=== PATIENT | female | born 1970 | race Two or more races ===

== ENCOUNTER 2019-07-16 10:58 | Observation (INO) | payer SELFPAY ==
--- NOTE | 2019-07-16 11:32 | ER Document Report ---
ED Medical Screen (RME) - General Chief Complaint: Abdominal Pain Stated Complaint: ABDOMINAL PAIN, NAUSEA Time Seen by Provider: 07/16/19 11:29 Primary Care Provider: JOSH FREGOSO NP [Primary Care Provider] - Follow up as needed Mode of Arrival: Wheelchair Information source: Patient Notes: 49-year-old female presented to ED for epigastric abdominal pain that spreads down to the whole abdomen. She states she has not had her gallbladder removed. She does have nausea and vomiting. The pain started after eating pork alireza last night. Is alert oriented respirations regular nonlabored speaking in full sentences to her son. She does speak in [place]. Her son is translating at this time. Blood urine ultrasound and Zofran will be ordered in the pit area. I have greeted and performed a rapid initial assessment of this patient. A comprehensive ED assessment and evaluation of the patient, analysis of test results and completion of medical decision making process will be conducted by an additional ED providers. TRAVEL OUTSIDE OF THE [place] IN LAST 30 DAYS: No Physical Exam - Vital signs Vitals: Temp Pulse Resp BP Pulse Ox 98.2 F 83 18 156/82 H 98 07/16/19 11:06 07/16/19 11:06 07/16/19 11:06 07/16/19 11:06 07/16/19 11:06 Course - Vital Signs Vital signs: Temp Pulse Resp BP Pulse Ox 98.2 F 83 18 156/82 H 98 07/16/19 11:06 07/16/19 11:06 07/16/19 11:06 07/16/19 11:06 07/16/19 11:06 Doctor's Discharge - Discharge Referrals: JOSH FREGOSO NP [Primary Care Provider] - Follow up as needed
[2019-07-16] MEDS ORDERED: ONDANSETRON 4 MG TAB.RAPDIS PO ONE (11:38)
[2019-07-16 12:02] LABS: ABSOLUTE LYMPHOCYTES (AUTO) 1.8 10^3/uL (0.5-4.7); ABSOLUTE MONOCYTES (AUTO) 0.6 10^3/uL (0.1-1.4); ABSOLUTE NEUT (AUTO) 11.3 10^3/uL (1.7-8.2); BASOPHILS % (AUTO) 0.4 % (0-2); EOSINOPHILS % (AUTO) 0.3 % (0-6); HEMATOCRIT 46.8 % (36.0-47.0); HEMOGLOBIN 15.7 g/dL (12.0-15.5); LYMPHOCYTES % (AUTO) 13.3 % (13-45); MEAN CORPUSCULAR HEMOGLOBIN 30.1 pg (27.0-33.4); MEAN CORPUSCULAR HGB CONC 33.6 g/dL (32.0-36.0); MEAN CORPUSCULAR VOLUME 90 fl (80-97); MONOCYTES % (AUTO) 4.4 % (3-13); PLATELET COUNT 436 10^3/uL (150-450); RED BLOOD COUNT 5.22 10^6/uL (3.72-5.28); RED CELL DISTRIBUTION WIDTH 13.3 % (11.5-14.0); SEGMENTED NEUTROPHILS % (AUTO) 81.6 % (42-78); TOTAL CELLS COUNTED % (AUTO) 100 %; WHITE BLOOD COUNT 13.8 10^3/uL (4.0-10.5)
[2019-07-16 12:07] LABS: APPEARANCE,URINE CLEAR; BILIRUBIN,URINE NEGATIVE (NEGATIVE); COLOR,URINE YELLOW; GLUCOSE, URINE NEGATIVE (NEGATIVE); KETONES,URINE NEGATIVE (NEGATIVE); PROTEIN,URINE NEGATIVE (NEGATIVE); URINE SPECIFIC GRAVITY 1.015; UROBILINOGEN,URINE NEGATIVE mg/dL (<2.0)
[2019-07-16 12:22] LABS: ALBUMIN 4.6 g/dL (3.5-5.0); ALKALINE PHOSPHATASE 120 U/L (38-126); ANION GAP 11 (5-19); ASPARTATE AMINO TRANSFERASE 43 U/L (14-36); BILIRUBIN,TOTAL 0.7 mg/dL (0.2-1.3); BLOOD UREA NITROGEN 12 mg/dL (7-20); CALCIUM 10.2 mg/dL (8.4-10.2); CARBON DIOXIDE 29 mmol/L (22-30); CHLORIDE 101 mmol/L (98-107); GLUCOSE 144 mg/dL (75-110); POTASSIUM 4.3 mmol/L (3.6-5.0); TOTAL PROTEIN 8.6 g/dL (6.3-8.2)
--- NOTE | 2019-07-16 13:43 | ER Document Report ---
ED General - General Chief Complaint: Epigastric Pain Stated Complaint: ABDOMINAL PAIN, NAUSEA Time Seen by Provider: 07/16/19 11:29 Mode of Arrival: Wheelchair Notes: 49-year-old primarily Indonesian-speaking female presents to the emergency department with c/o epigastric pain that started last night after she ate pork rinds. Patient's son is at the bedside interpreting for mother. Timti has been requested. Patient reports she is vomited twice. Denies pain at this time. Denies diarrhea fever. Reports she has been told she is prediabetic. Has not had anything to eat or drink all day. TRAVEL OUTSIDE OF THE [place] IN LAST 30 DAYS: Yes - HPI Onset: Yesterday Onset/Duration: Sudden Quality of pain: Achy Associated symptoms: Nausea, Vomiting Exacerbated by: Denies Relieved by: Denies Similar symptoms previously: No Recently seen / treated by doctor: No - Related Data Allergies/Adverse Reactions: No Known Allergies Allergy (Unverified 07/16/19 11:40) Past Medical History - General Information source: Patient Last Menstrual Period: menopause - Social History Smoking Status: Never Smoker Chew tobacco use (# tins/day): No Frequency of alcohol use: None Drug Abuse: None Lives with: Family Family History: None Patient has suicidal ideation: No Patient has homicidal ideation: No - Medical History Medical History: Negative Surgical Hx: Negative Review of Systems - Review of Systems Notes: Review HPI for review of systems., All other systems negative Physical Exam - Vital signs Vitals: Temp Pulse Resp BP Pulse Ox 98.2 F 83 18 156/82 H 98 07/16/19 11:06 07/16/19 11:06 07/16/19 11:06 07/16/19 11:06 07/16/19 11:06 - Notes Notes: PHYSICAL EXAMINATION: GENERAL: Well-appearing and in no acute distress HEAD: Atraumatic, normocephalic. EYES: extraocular movements intact, sclera anicteric, conjunctiva are normal. ENT: nares patent, Moist mucous membranes. NECK: Normal range of motion, supple without lymphadenopathy LUNGS: CTAB and equal. No wheezes rales or rhonchi. HEART: Regular rate and rhythm without murmurs ABDOMEN: Soft, no tenderness. No guarding, no rebound denies pain EXTREMITIES: Normal range of motion NEUROLOGICAL: Cranial nerves grossly intact. Normal sensory/motor exams. PSYCH: Normal mood, normal affect. SKIN: Warm, Dry, normal turgor, no rashes or lesions noted Course - Re-evaluation Re-evalutation: 07/16/19 14:40 49-year-old female presents with epigastric pain. WBCs 13.8 no shift. All other labs unremarkable. Ultrasound shows cholelithiasis cholecystitis. Discussed surgical consult with patient to have gallbladder removed. She jeremy balized understanding thru her son and agrees with plan of care. Laboratory 07/16/19 07/16/19 07/16/19 11:51 11:51 11:51 WBC 13.8 H RBC 5.22 Hgb 15.7 H Hct 46.8 MCV 90 MCH 30.1 MCHC 33.6 RDW 13.3 Plt Count 436 Lymph % (Auto) 13.3 Holmes % (Auto) 4.4 Eos % (Auto) 0.3 Baso % (Auto) 0.4 Absolute Neuts (auto) 11.3 H Absolute Lymphs (auto) 1.8 Absolute Monos (auto) 0.6 Absolute Eos (auto) 0.0 Absolute Basos (auto) 0.0 Seg Neutrophils % 81.6 H Sodium 141.3 Potassium 4.3 Chloride 101 Carbon Dioxide 29 Anion Gap 11 BUN 12 Creatinine 0.59 Est GFR ( Amer) > 60 Est GFR (MDRD) Non-Af > 60 Glucose 144 H Calcium 10.2 Total Bilirubin 0.7 Direct Bilirubin 0.0 Neonat Total Bilirubin Not Reportable Neonat Direct Bilirubin Not Reportable Neonat Indirect Bili Not Reportable AST 43 H ALT 38 H Alkaline Phosphatase 120 Total Protein 8.6 H Albumin 4.6 Lipase 71.3 Urine Color YELLOW Urine Appearance CLEAR Urine pH 8.0 Ur Specific [place] 1.015 Urine Protein NEGATIVE Urine Glucose (UA) NEGATIVE Urine Ketones NEGATIVE Urine Blood NEGATIVE Urine Nitrite (Reflex) NEGATIVE Urine Bilirubin NEGATIVE Urine Urobilinogen NEGATIVE Leukocyte Esterase Rfl TRACE H Urine RBC (Auto) 1 Urine WBC (Reflex) 4 Squamous Epi Cells Auto 2 Urine Mucus (Auto) OCC Urine Ascorbic Acid NEGATIVE Abdomen Ultrasound 07/16/19 11:33 IMPRESSION: 1. Hepatic steatosis. 2. Cholelithiasis, gallbladder wall thickening and a trace amount of pericholecystic fluid. In the setting of a negative sonographic Nunez sign these signing sarcoma local for acute cholecystitis. If indicated correlation with a HIDA could obtained for confirmation. 3. The pancreas and mid abdominal aorta are obscured by overlying bowel. 07/16/19 15:23 - Vital Signs Vital signs: Temp Pulse Resp BP Pulse Ox 98.2 F 83 18 156/82 H 98 07/16/19 11:06 07/16/19 11:06 07/16/19 11:06 07/16/19 11:06 07/16/19 11:06 - Laboratory Result Diagrams: 07/16/19 11:51 07/16/19 11:51 Laboratory results interpreted by me: 07/16/19 07/16/19 07/16/19 11:51 11:51 11:51 WBC 13.8 H Hgb 15.7 H Absolute Neuts (auto) 11.3 H Seg Neutrophils % 81.6 H Glucose 144 H AST 43 H ALT 38 H Total Protein 8.6 H Leukocyte Esterase Rfl TRACE H - Diagnostic Test Radiology reviewed: Image reviewed, Reports reviewed - Consults dr patel Time consulted: 15:02 Reason for consultation: 07/16/19 15:02 cholecystitis Consulted provider: will come to ER Discharge - Discharge Clinical Impression: Cholecystitis Abdominal pain Qualifiers: Abdominal location: generalized Qualified Code(s): R10.84 - Generalized abdominal pain Condition: Stable Disposition: ADMITTED INPATIENT Admitting Provider: Surgicalist Unit Admitted: Surgical Floor
--- NOTE | 2019-07-16 14:17 | RADIOLOGY REPORT (SQ) ---
EXAM DESCRIPTION: U/S ABDOMEN LIMITED W/O DOP COMPLETED DATE/TIME: 07/16/2019 1:59 pm REASON FOR STUDY: Epigastric pain with nausea and vomiting. COMPARISON: None. TECHNIQUE: Dynamic and static grayscale images acquired of the abdomen and recorded on PACS. Additio nal selected color Doppler and spectral images recorded. LIMITATIONS: None. FINDINGS: PANCREAS: Unable to visualize the pancreas. LIVER: Increased heterogeneous echotexture of hepatic parenchyma with attenuation of the far field. LIVER VASCULATURE: Hepatopetal directional flow within the portal veins. GALLBLADDER: The gallbladder wall is thickened and it measures 7 mm. There or shadowing echogenic ca lculi within the gallbladder lumen and a trace amount of pericholecystic fluid. ULTRASOUND-DETECTED NUNEZ'S SIGN: Negative. INTRAHEPATIC DUCTS AND COMMON DUCT: The common bile duct measures 5 mm in diameter. Evaluation of th e intrahepatic bile ducts is limited. AORTA: No aneurysm of the proximal or distal abdominal aorta ; unable to visualize the mid abdominal aorta. RIGHT KIDNEY: The right kidney measures 10.2 cm in length. There is no hydronephrosis. PERITONEAL AND RIGHT PLEURAL SPACE: No ascites or effusions. OTHER: No other findings. IMPRESSION: 1. Hepatic steatosis. 2. Cholelithiasis, gallbladder wall thickening and a trace amount of pericholecystic fluid. In the setting of a negative sonographic Nunez sign these signing sarcoma local for acute cholecystitis. I f indicated correlation with a HIDA could obtained for confirmation. 3. The pancreas and mid abdominal aorta are obscured by overlying bowel. TECHNICAL DOCUMENTATION: JOB ID: [id number] 2010 [employer]- All Rights Reserved Reading location - IP/workstation name: [id number]
[2019-07-16] MEDS ORDERED: AMPICILLIN SOD/SULBACTAM 3 GM VIAL IV ONE (14:57)
[2019-07-16] MEDS ORDERED: NORMAL SALINE 1000 ML 1,000 ML IV ONE (14:57)
[2019-07-16] MEDS ORDERED: RINGERS SOLUTION,LACTATED 1,000 ML IV PRN (16:51)
[2019-07-16] MEDS ORDERED: ONDANSETRON HCL INJ/PF 4 MG/2 ML SDV IV PRN (16:51)
[2019-07-16] MEDS ORDERED: KETOROLAC TROMETHAMINE 10 MG TABLET PO PRN (16:51)
--- NOTE | 2019-07-16 16:57 | PDOC H&P ---
History of Present Illness Patient complains of: Abdominal pain History of Present Illness: MEMO BUSH is a 49 year old female 49-year-old female, [id number], presents emergency department with a several day history of abdominal pain, postprandial, worse in the right upper quadrant. Last night of pain was worse after eating pork grinds. She is seen in the emergency department this morning which found to have right upper quadrant tenderness. Gallbladder ultrasound showed gallstones, pericholecystic fluid and gallbladder wall thickening to 7 mm. Surgery was consulted and she was advised admission. There is no known family history of gallstones. Patient is accompanied by her family including her son who speaks on her behalf. Past Medical History Medical History: None Past Surgical History Past Surgical History: Reports: None Social History Information Source: Patient Lives with: Family Smoking Status: Never Smoker Electronic Cigarette use?: No Frequency of Alcohol Use: None Hx Recreational Drug Use: No Family History Parental Family History Reviewed: No Children Family History Reviewed: No Sibling(s) Family History Reviewed.: No Medication/Allergy Allergies/Adverse Reactions: No Known Allergies Allergy (Unverified 07/16/19 11:40) Review of Systems ROS unobtainable: Other - Obtained through the filter helper, her son. Constitutional: ABSENT: chills, fever(s), headache(s), weight gain, weight loss Ears: ABSENT: hearing changes Cardiovascular: ABSENT: chest pain, dyspnea on exertion, edema, orthropnea, palpitations Gastrointestinal: PRESENT: as per HPI. ABSENT: abdominal pain, constipation, diarrhea, hematemesis, hematochezia, nausea, vomiting Genitourinary: ABSENT: dysuria, hematuria Musculoskeletal: ABSENT: joint swelling Neurological: ABSENT: abnormal gait, abnormal speech, confusion, dizziness, focal weakness, syncope Physical Exam Vital Signs: Temp Pulse Resp BP Pulse Ox 98.2 F 83 18 156/82 H 98 07/16/19 11:06 07/16/19 11:06 07/16/19 11:06 07/16/19 11:06 07/16/19 11:06 Intake & Output 07/15/19 07/16/19 07/17/19 06:59 06:59 06:59 Weight 91.4 kg General appearance: PRESENT: no acute distress, other - History and physical obtained via son, filter helper Head exam: PRESENT: atraumatic Eye exam: PRESENT: EOMI Mouth exam: PRESENT: dry mucosa Neck exam: PRESENT: full ROM Respiratory exam: PRESENT: clear to auscultation randee Cardiovascular exam: PRESENT: RRR Pulses: PRESENT: normal carotid pulses, normal radial pulses, normal femoral pulses GI/Abdominal exam: PRESENT: diminished bowel sounds, other - Tender right upper quadrant with moderate guarding Rectal exam: PRESENT: deferred Extremities exam: PRESENT: full ROM Musculoskeletal exam: PRESENT: full ROM Neurological exam: PRESENT: oriented to person, oriented to place, oriented to time, oriented to situation, other - Again information obtained through filter helper Skin exam: PRESENT: intact Results Laboratory Results: 07/16/19 11:51 07/16/19 11:51 07/16/19 07/16/19 07/16/19 11:51 11:51 11:51 WBC 13.8 H RBC 5.22 Hgb 15.7 H Hct 46.8 MCV 90 MCH 30.1 MCHC 33.6 RDW 13.3 Plt Count 436 Seg Neutrophils % 81.6 H Sodium 141.3 Potassium 4.3 Chloride 101 Carbon Dioxide 29 Anion Gap 11 BUN 12 Creatinine 0.59 Est GFR ( Amer) > 60 Glucose 144 H Calcium 10.2 Total Bilirubin 0.7 AST 43 H Alkaline Phosphatase 120 Total Protein 8.6 H Albumin 4.6 Lipase 71.3 Urine Color YELLOW Urine Appearance CLEAR Urine pH 8.0 Ur Specific [place] 1.015 Urine Protein NEGATIVE Urine Glucose (UA) NEGATIVE Urine Ketones NEGATIVE Urine Blood NEGATIVE Urine RBC (Auto) 1 Impressions: Abdomen Ultrasound 07/16/19 11:33 IMPRESSION: 1. Hepatic steatosis. 2. Cholelithiasis, gallbladder wall thickening and a trace amount of pericholecystic fluid. In the setting of a negative sonographic Nunez sign these signing sarcoma local for acute cholecystitis. If indicated correlation with a HIDA could obtained for confirmation. 3. The pancreas and mid abdominal aorta are obscured by overlying bowel. Assessment & Plan - Diagnosis (1) Abdominal pain Qualifiers: Abdominal location: generalized Qualified Code(s): R10.84 - Generalized abdominal pain Is this a current diagnosis for this admission?: Yes Plan: Impression: Symptomatic cholelithiasis with cholecystitis and otherwise healthy [id number] female: Liver function studies within normal limits. Recommendations: Patient will be admitted to the surgical service, kept n.p.o. on IV fluids intravenous antibiotics. She will be set up for interval laparoscopic, possible open cholecystectomy, 1 hour, COUNT INCLUDES THE [facility], surgicalist of the day. (2) Obesity Is this a current diagnosis for this admission?: Yes - Time Time Spent: 30 to 50 Minutes Medications reviewed and adjusted accordingly: Yes Anticipated discharge: Home - Inpatient Certification Based on my medical assessment, after consideration of the patient's comorbidities, presenting symptoms, or acuity I expect that the services needed warrant INPATIENT care.: Yes I certify that my determination is in accordance with my understanding of Medicare's requirements for reasonable and necessary INPATIENT services [42 CFR 412.3e].: Yes Medical Necessity: Need For IV Fluids, Need for Pain Control, Need for IV Antibiotics, Need for Surgery
[2019-07-16] MEDS: ACETAMINOPHEN INJ/PF 1000 MG/100 ML SDV IV SCH ×2 (17:34→23:18)
[2019-07-16] MEDS: AMPICILLIN SODIUM/SULBACTAM NA 3 GM in NORMAL SALINE 100 ML IV SCH (21:37)
[2019-07-16] MEDS ORDERED: INFLUENZA QUAD (6MOS+) 2019-20 VAC 0.5 ML SYR IM ONE (23:38)
[2019-07-17] MEDS: AMPICILLIN SODIUM/SULBACTAM NA 3 GM in NORMAL SALINE 100 ML IV SCH ×3 (05:07→21:07)
[2019-07-17] MEDS: ACETAMINOPHEN INJ/PF 1000 MG/100 ML SDV IV SCH ×4 (06:20→23:42)
[2019-07-17] MEDS ORDERED: IBUPROFEN 400 MG TABLET PO PRN (08:56)
--- NOTE | 2019-07-17 09:20 | PDOC PROGRESS REPORT ---
Subjective Progress Note for:: 07/17/19 Subjective:: Feels better. Still has some right upper quadrant abdominal pain. I obtained the history and discussed surgery with the patient via her son who acted as the head doffer Reason For Visit: ABDOMINAL PAIN, CHOLECYSTITIS Physical Exam Vital Signs: Temp Pulse Resp BP Pulse Ox 98.1 F 65 18 115/71 99 07/17/19 00:46 07/17/19 00:46 07/17/19 00:46 07/17/19 00:46 07/17/19 00:46 Intake & Output 07/16/19 07/17/19 07/18/19 06:59 06:59 06:59 Intake Total 1400 Balance 1400 Weight 78.2 kg General appearance: PRESENT: no acute distress, cooperative Respiratory exam: PRESENT: clear to auscultation randee Cardiovascular exam: PRESENT: RRR GI/Abdominal exam: PRESENT: other - Soft, nondistended, very mild right upper quadrant abdominal tenderness without peritoneal signs. Results Laboratory Results: 07/16/19 11:51 07/16/19 11:51 07/16/19 07/16/19 07/16/19 11:51 11:51 11:51 WBC 13.8 H RBC 5.22 Hgb 15.7 H Hct 46.8 MCV 90 MCH 30.1 MCHC 33.6 RDW 13.3 Plt Count 436 Seg Neutrophils % 81.6 H Sodium 141.3 Potassium 4.3 Chloride 101 Carbon Dioxide 29 Anion Gap 11 BUN 12 Creatinine 0.59 Est GFR ( Amer) > 60 Glucose 144 H Calcium 10.2 Total Bilirubin 0.7 AST 43 H Alkaline Phosphatase 120 Total Protein 8.6 H Albumin 4.6 Lipase 71.3 Urine Color YELLOW Urine Appearance CLEAR Urine pH 8.0 Ur Specific [place] 1.015 Urine Protein NEGATIVE Urine Glucose (UA) NEGATIVE Urine Ketones NEGATIVE Urine Blood NEGATIVE Urine RBC (Auto) 1 Impressions: Abdomen Ultrasound 07/16/19 11:33 IMPRESSION: 1. Hepatic steatosis. 2. Cholelithiasis, gallbladder wall thickening and a trace amount of pericholecystic fluid. In the setting of a negative sonographic Nunez sign these signing sarcoma local for acute cholecystitis. If indicated correlation with a HIDA could obtained for confirmation. 3. The pancreas and mid abdominal aorta are obscured by overlying bowel. Assessment & Plan - Diagnosis (1) Cholecystitis Is this a current diagnosis for this admission?: Yes Plan: Plan laparoscopic cholecystectomy. Possible open cholecystectomy. I have had a discussion with the patient via head doffer about the risk and benefits of the surgery including risk of adjacent structure injury such as bile duct injury, bleeding, infection, postcholecystectomy diarrhea, possibility of conversion to an open procedure. Patient understands and agrees to proceed.
[2019-07-17] MEDS ORDERED: ROCURONIUM BROMIDE INJ 50 MG/5 ML VIAL IV ONE (12:10)
[2019-07-17] MEDS ORDERED: SUCCINYLCHOLINE CHLORIDE INJ 200 MG/10 ML VIAL ONE (12:10)
[2019-07-17] MEDS ORDERED: BUPIVACAINE HCL 0.25 % INJ/PF (2.5 MG/1 ML) 30 ML VIAL ONE (13:31)
[2019-07-17] MEDS ORDERED: FENTANYL CITRATE INJ/PF 100 MCG/2 ML AMPUL ONE ×2 (13:36→16:08)
[2019-07-17] MEDS ORDERED: SUGAMMADEX SODIUM 200 MG/2 ML SDV IV ONE (13:36)
[2019-07-17] MEDS ORDERED: ONDANSETRON HCL INJ/PF 4 MG/2 ML SDV ONE (13:36)
[2019-07-17] MEDS ORDERED: DEXAMETHASONE SOD PHOSPHATE INJ 4 MG/1 ML VIAL ONE (13:36)
[2019-07-17] MEDS ORDERED: MIDAZOLAM 2 MG/2 ML INJ ONE (13:36)
[2019-07-17] MEDS ORDERED: PROPOFOL INJ 200 MG/20 ML VIAL IV ONE (13:37)
[2019-07-17] MEDS ORDERED: BUPIVACAINE HCL 0.25 % INJ/PF (2.5 MG/1 ML) 30 ML VIAL INJ ONE ×2 (13:45)
[2019-07-17] MEDS ORDERED: MORPHINE SULFATE 10 MG/ML INJ IV PRN (14:27)
[2019-07-17] MEDS ORDERED: DIPHENHYDRAMINE HCL 50 MG/ML VIAL IV PRN (14:27)
[2019-07-17] MEDS ORDERED: ONDANSETRON HCL INJ/PF 4 MG/2 ML SDV IV PRN (14:27)
[2019-07-17] MEDS ORDERED: MEPERIDINE HCL/PF INJ 25 MG/1 ML DISP.SYRIN IV PRN (14:27)
[2019-07-17] MEDS ORDERED: FENTANYL CITRATE INJ/PF 100 MCG/2 ML AMPUL IV PRN ×2 (14:27)
[2019-07-17] MEDS ORDERED: PROMETHAZINE HCL INJ 25 MG/1 ML VIAL IV PRN ×2 (14:27)
[2019-07-17] MEDS: FENTANYL CITRATE INJ/PF 100 MCG/2 ML AMPUL IV PRN ×2 (16:10→16:16)
[2019-07-17] MEDS ORDERED: HYDROMORPHONE HCL INJ/PF 2 MG/ML AMPULE IV PRN (16:10)
--- NOTE | 2019-07-17 16:10 | Operative Report ---
Operative Report DATE OF SURGERY: 07/17/19 PREOPERATIVE DIAGNOSIS: Acute cholecystitis POSTOPERATIVE DIAGNOSIS: Cholelithiasis with acute cholecystitis OPERATION: Laparoscopic cholecystectomy SURGEON: BO ESPINOSA ANESTHESIA: GA TISSUE REMOVED OR ALTERED: Gallbladder COMPLICATIONS: None ESTIMATED BLOOD LOSS: 50 cc INTRAOPERATIVE FINDINGS: Markedly thickened wall gallbladder with large gallstones. PROCEDURE: Informed consent was obtained. Patient was brought to the operating room placed operating table in supine position. After satisfactory induction of general anesthesia, patient's abdomen was prepped and draped in usual sterile fashion. A supraumbilical midline incision was made and dissection carried down to the fascia the peritoneal cavity entered without difficulty. Santos trocar was inserted. Pneumoperitoneum produced good patient toleration. 5 mm trocar was placed in the subxiphoid location.Two 5 mm trochars were placed in the right subcostal location. The gallbladder was edematous and its wall was thickened with palpable large stone at the infundibulum of the gallbladder. the gallbladder was grasped and retracted cephalad over the dome of the liver. The infundibulum of the gallbladder was grasped retracted laterally and inferiorly thus exposing calot's triangle. The cystic duct gallbladder junction was clearly identified and the cystic duct was clipped and divided. There was some lymphatic tissue overlying the cystic artery which was clipped and divided. Cystic artery was likewise taken. The gallbladder was taken off the gallbladder bed using the hook electrocautery technique. There was no bile spillage during the case and there was no stone spillage during the case. The gallbladder was removed with an Endobag through the Santos trocar site fascial defect. The fascial defect had to be significantly widened to allow extraction of the gallbladder due to the size of the stones and the thickness of the gallbladder wall. The operative field was irrigated and irrigant aspirated out. Hemostasis appeared excellent. All trochars were removed under the direct vision a laparoscope to ensure hemostasis. The most lateral 5 mm trocar site bled requiring cautery to control the bleeding. Hemostasis appeared excellent after application electrocautery. The blood in the perihepatic region was irrigated and irrigant aspirated out. Irrigation fluid was clear at the end of the case. The Santos trocar site fascial defect was closed with interrupted Vicryl sutures. All skin incisions were closed with subcuticular interrupted Monocryl sutures. Marcaine was injected at the port sites. Patient tolerated procedure well no apparent complications and was taken to the recovery area in stable condition.
[2019-07-17] MEDS ORDERED: KETOROLAC TROMETHAMINE INJ/PF 30 MG/1 ML SDV IV PRN (16:12)
[2019-07-17] MEDS ORDERED: RINGERS SOLUTION,LACTATED 1,000 ML IV PRN (16:12)
[2019-07-17] MEDS ORDERED: METOCLOPRAMIDE HCL INJ/PF 10 MG/2 ML SDV ONE (16:41)
--- NOTE | 2019-07-17 19:56 | PDOC PROGRESS REPORT ---
Subjective Progress Note for:: 07/17/19 Subjective:: Feels better after surgery. Hungry. No nausea. Reason For Visit: ABDOMINAL PAIN, CHOLECYSTITIS Physical Exam Vital Signs: Temp Pulse Resp BP Pulse Ox 98.6 F 62 12 122/56 L 96 07/17/19 17:01 07/17/19 17:01 07/17/19 17:01 07/17/19 17:01 07/17/19 17:01 Intake & Output 07/16/19 07/17/19 07/18/19 06:59 06:59 06:59 Intake Total 1400 1100 Output Total 5 Balance 1400 1095 Weight 78.2 kg General appearance: PRESENT: no acute distress, cooperative Respiratory exam: PRESENT: clear to auscultation randee Cardiovascular exam: PRESENT: RRR GI/Abdominal exam: PRESENT: other - Soft, nondistended, minimal tenderness to palpation. Results Laboratory Results: 07/16/19 11:51 07/16/19 11:51 Impressions: Abdomen Ultrasound 07/16/19 11:33 IMPRESSION: 1. Hepatic steatosis. 2. Cholelithiasis, gallbladder wall thickening and a trace amount of pericholecystic fluid. In the setting of a negative sonographic Nunez sign these signing sarcoma local for acute cholecystitis. If indicated correlation with a HIDA could obtained for confirmation. 3. The pancreas and mid abdominal aorta are obscured by overlying bowel. Assessment & Plan - Diagnosis (1) Cholecystitis Is this a current diagnosis for this admission?: Yes Plan: Status post laparoscopic cholecystectomy. Patient looks good. Will start a clear liquid diet tonight. Probable discharge tomorrow.
[2019-07-18 04:38] LABS: HEMATOCRIT 35.3 % (36.0-47.0); MEAN CORPUSCULAR HEMOGLOBIN 30.8 pg (27.0-33.4); MEAN CORPUSCULAR VOLUME 88 fl (80-97); PLATELET COUNT 297 10^3/uL (150-450); RED CELL DISTRIBUTION WIDTH 13.1 % (11.5-14.0); WHITE BLOOD COUNT 7.6 10^3/uL (4.0-10.5)
[2019-07-18 04:39] LABS: HEMOGLOBIN 12.3 g/dL (12.0-15.5)
[2019-07-18 04:48] LABS: ALBUMIN 3.2 g/dL (3.5-5.0); ALKALINE PHOSPHATASE 97 U/L (38-126); ANION GAP 7 (5-19); ASPARTATE AMINO TRANSFERASE 138 U/L (14-36); BILIRUBIN,DIRECT 0.2 mg/dL (0.0-0.4); BILIRUBIN,TOTAL 0.7 mg/dL (0.2-1.3); BLOOD UREA NITROGEN 9 mg/dL (7-20); CALCIUM 8.6 mg/dL (8.4-10.2); CARBON DIOXIDE 29 mmol/L (22-30); CHLORIDE 101 mmol/L (98-107); GLUCOSE 111 mg/dL (75-110); POTASSIUM 4.1 mmol/L (3.6-5.0); TOTAL PROTEIN 6.3 g/dL (6.3-8.2)
[2019-07-18] MEDS: AMPICILLIN SODIUM/SULBACTAM NA 3 GM in NORMAL SALINE 100 ML IV SCH (05:02)
[2019-07-18] MEDS: ACETAMINOPHEN INJ/PF 1000 MG/100 ML SDV IV SCH ×2 (06:16→13:36)
[2019-07-18 09:24] VITALS: BP 134/56
--- NOTE | 2019-07-18 14:01 | PDOC DISCHARGE SUMMARY ---
General - Admit/Disc Date/PCP Admission Date/Primary Care Provider: 07/16/19 18:05 Discharge Date: 07/18/19 - Discharge Diagnosis Final Diagnosis: Acute cholecystitis - Assessment Summary: This is a 49-year-old female who presented to hospital with right upper quadrant pain, nausea, and vomiting. She was found to have acute cholecystitis. She was taken to the operating room for definitive surgical treatment. The patient underwent laparoscopic cholecystectomy, and did very well. On postoperative day #1, she was ambulating, tolerating a diet, her pain was controlled, and it was felt that she had reached maximal hospital benefit. At this time she is fit for discharge. Discharge to home. - Additional Information Resuscitation Status: Full Code Discharge Diet: As Tolerated Discharge Activity: No Lifting Over 10 Pounds, No Lifting/Push/Pulling Referrals: [facility] [Provider Group] - 07/26/19 8:15 am (WITH DR. CHAU) Prescriptions: Hydrocodone/Acetaminophen [[place] 5-325 mg Tablet] 1 tab PO Q6HP PRN #20 tablet PRN Reason: For Pain Home Medications: Hydrocodone/Acetaminophen [[place] 5-325 mg Tablet] 1 tab PO Q6HP PRN #20 tablet 07/18/19 Additional Information: Discharge home. Diet as tolerated. Activity: No lifting greater than 10 pounds x 2 weeks. Follow-up with [place] [facility] in 7 to 10 days. Okay to shower starting tomorrow. No tub baths or swimming pools x2 weeks. Ibuprofen 800 mg p.o. 3 times daily with meals. [place] 5/325 mg p.o. every 6 hours PRN for pain. History of Present Illiness History of Present Illness: MEMO BUSH is a 49 year old female Physical Exam Vital Signs: Temp Pulse Resp BP Pulse Ox 98.8 F 65 16 134/56 H 99 07/18/19 08:00 07/18/19 08:00 07/18/19 08:00 07/18/19 08:00 07/18/19 08:00 Intake & Output 07/17/19 07/18/19 07/19/19 06:59 06:59 06:59 Intake Total 1400 2145 Output Total 5 Balance 1400 2140 Weight 78.2 kg 81.2 kg Results Laboratory Results: WBC 7.6 10^3/uL (4.0-10.5) 07/18/19 04:08 RBC 4.00 10^6/uL (3.72-5.28) 07/18/19 04:08 Hgb 12.3 g/dL (12.0-15.5) D 07/18/19 04:08 Hct 35.3 % (36.0-47.0) L 07/18/19 04:08 MCV 88 fl (80-97) 07/18/19 04:08 MCH 30.8 pg (27.0-33.4) 07/18/19 04:08 MCHC 35.0 g/dL (32.0-36.0) 07/18/19 04:08 RDW 13.1 % (11.5-14.0) 07/18/19 04:08 Plt Count 297 10^3/uL (150-450) 07/18/19 04:08 Lymph % (Auto) 13.3 % (13-45) 07/16/19 11:51 [place] % (Auto) 4.4 % (3-13) 07/16/19 11:51 Eos % (Auto) 0.3 % (0-6) 07/16/19 11:51 Baso % (Auto) 0.4 % (0-2) 07/16/19 11:51 Absolute Neuts (auto) 11.3 10^3/uL (1.7-8.2) H 07/16/19 11:51 Absolute Lymphs (auto) 1.8 10^3/uL (0.5-4.7) 07/16/19 11:51 Absolute Monos (auto) 0.6 10^3/uL (0.1-1.4) 07/16/19 11:51 Absolute Eos (auto) 0.0 10^3/uL (0.0-0.6) 07/16/19 11:51 Absolute Basos (auto) 0.0 10^3/uL (0.0-0.2) 07/16/19 11:51 Seg Neutrophils % 81.6 % (42-78) H 07/16/19 11:51 Sodium 137.3 mmol/L (137-145) 07/18/19 04:08 Potassium 4.1 mmol/L (3.6-5.0) 07/18/19 04:08 Chloride 101 mmol/L (98-107) 07/18/19 04:08 Carbon Dioxide 29 mmol/L (22-30) 07/18/19 04:08 Anion Gap 7 (5-19) 07/18/19 04:08 BUN 9 mg/dL (7-20) 07/18/19 04:08 Creatinine 0.52 mg/dL (0.52-1.25) 07/18/19 04:08 Est GFR ( Amer) > 60 (>60) 07/18/19 04:08 Est GFR (MDRD) Non-Af > 60 (>60) 07/18/19 04:08 Glucose 111 mg/dL (75-110) H 07/18/19 04:08 Calcium 8.6 mg/dL (8.4-10.2) 07/18/19 04:08 Total Bilirubin 0.7 mg/dL (0.2-1.3) 07/18/19 04:08 Direct Bilirubin 0.2 mg/dL (0.0-0.4) 07/18/19 04:08 Neonat Total Bilirubin Not Reportable 07/18/19 04:08 Neonat Direct Bilirubin Not Reportable 07/18/19 04:08 Neonat Indirect Bili Not Reportable 07/18/19 04:08 AST 138 U/L (14-36) H 07/18/19 04:08 ALT 120 U/L (<35) H 07/18/19 04:08 Alkaline Phosphatase 97 U/L (38-126) 07/18/19 04:08 Total Protein 6.3 g/dL (6.3-8.2) 07/18/19 04:08 Albumin 3.2 g/dL (3.5-5.0) L 07/18/19 04:08 Lipase 71.3 U/L (23-300) 07/16/19 11:51 Urine Color YELLOW 07/16/19 11:51 Urine Appearance CLEAR 07/16/19 11:51 Urine pH 8.0 (5.0-9.0) 07/16/19 11:51 Ur Specific [place] 1.015 07/16/19 11:51 Urine Protein NEGATIVE mg/dL (NEGATIVE) 07/16/19 11:51 Urine Glucose (UA) NEGATIVE mg/dL (NEGATIVE) 07/16/19 11:51 Urine Ketones NEGATIVE mg/dL (NEGATIVE) 07/16/19 11:51 Urine Blood NEGATIVE (NEGATIVE) 07/16/19 11:51 Urine Nitrite (Reflex) NEGATIVE (NEGATIVE) 07/16/19 11:51 Urine Bilirubin NEGATIVE (NEGATIVE) 07/16/19 11:51 Urine Urobilinogen NEGATIVE mg/dL (<2.0) 07/16/19 11:51 Leukocyte Esterase Rfl TRACE (NEGATIVE) H 07/16/19 11:51 Urine RBC (Auto) 1 /HPF 07/16/19 11:51 Urine WBC (Reflex) 4 /HPF 07/16/19 11:51 Squamous Epi Cells Auto 2 /HPF 07/16/19 11:51 Urine Mucus (Auto) OCC /LPF 07/16/19 11:51 Urine Ascorbic Acid NEGATIVE (NEGATIVE) 07/16/19 11:51 Impressions: Abdomen Ultrasound 07/16/19 11:33 IMPRESSION: 1. Hepatic steatosis. 2. Cholelithiasis, gallbladder wall thickening and a trace amount of pericholecystic fluid. In the setting of a negative sonographic Nunez sign these signing sarcoma local for acute cholecystitis. If indicated correlation with a HIDA could obtained for confirmation. 3. The pancreas and mid abdominal aorta are obscured by overlying bowel.
== END 2019-07-18 14:49 | disposition home or self-care (01) ==
LOC: ER 10:58 → EH 18:05 → 5 20:01
PROVIDERS: ADMIT Surgery; ATTEND Surgery
DX: K80.12 Calculus of gallbladder with acute and chronic cholecystitis without obstruction (principal); E66.9 Obesity, unspecified; D76.1 Hemophagocytic lymphohistiocytosis; Z78.0 Asymptomatic menopausal state
CPT/HCPCS: 47562; 36591; 99285; 96365; 36415 ×2; 87086; 83690; 85025; 85027; 87088; 80053 ×2; 81001; 87186; 88342 ×2; 88341 ×2; 88304 ×2; 88312 ×2; 76705; 00790; G0378 ×4; J2250; J3490 ×2; J1100; S0119; J3010; J0295 ×3; J1885; J2765; J1170; J0330; J2405; J7050 ×3; J7030; J7120 ×2; J2704; J0131 ×3; 790